=== PATIENT | female | born 1970 | race Caucasian/White ===

== ENCOUNTER → 2017-02-16 | Outpatient (CLI) | payer BC ==
[~2017-02-16] MED LIST: SPRINTEC 35 MCG1 TAB PO; SYNTHROID0.125 MG/T PO
== END ==
LOC: COL.VAS 12:21
DX: M25.562 Pain in left knee (principal)

== ENCOUNTER 2018-07-15 06:11 | Emergency (ER) | payer OTHER | END 2018-07-15 08:10 | disposition home or self-care (01) | LOC: COL.ER 06:11 | DX: S06.0X0A Concussion without loss of consciousness, initial encounter (principal); S00.83XA Contusion of other part of head, initial encounter; F32.9 Major depressive disorder, single episode, unspecified; F41.9 Anxiety disorder, unspecified; V43.52XA Car driver injured in collision with other type car in traffic accident, initial encounter ==

== ENCOUNTER 2018-07-23 13:56 | Outpatient (RCR) | payer OTHER ==
[~2018-07-23 13:56] MED LIST changes: +EFFEXOR-XR150 MG PO; +PROTONIX 40MG T40 MG PO; +SYNTHROID0.1 MG/TAB PO
== END 2018-10-09 15:21 | disposition home or self-care (01) ==
LOC: WSOH 13:56
DX: R51 Headache (principal); V49.88XA Car occupant (driver) (passenger) injured in other specified transport accidents, initial encounter; Y92.414 Local residential or business street as the place of occurrence of the external cause; Y99.0 Civilian activity done for income or pay; K21.9 Gastro-esophageal reflux disease without esophagitis; E03.9 Hypothyroidism, unspecified; Z87.891 Personal history of nicotine dependence

== ENCOUNTER 2018-10-13 05:14 | Emergency (ER) | payer BC ==
[~2018-10-13] VITALS: Ht 160 cm; Wt 51.4 kg
[2018-10-13 05:33] VITALS: TEMP 97.9
[2018-10-13 07:09] LABS: BASO # 0.1 (0.0-0.2); EOS # 0.1 (0.0-0.7); EOS % 1.6 % (0-4.0); GRAN # 4.4 (1.4-6.5); GRAN % 71.5 % (42.2-75.2); HEMATOCRIT 38.8 % (37.0-47.0); HEMOGLOBIN 12.8 g/dl (12.5-16.0); LYMPH # 1.2 (1.2-3.4); MEAN CELL VOLUME 85 fl (80.0-100.0); MEAN CORPUSCULAR HEMOGLOBIN 28 pg (27.0-31.0); MEAN CORPUSCULAR HGB CONC 33 g/dl (33.0-37.0); MEAN PLATELET VOLUME 9.8 fl (7.4-10.4); MONO # 0.3 (0.1-0.6); MONO % 5.6 % (1.7-9.3); PLATELET COUNT 259 K/mm3 (130-400); RED BLOOD COUNT 4.57 M/mm3 (4.10-5.30)
[2018-10-13 07:23] LABS: ALBUMIN 3.4 gm/dL (3.5-5.0); BILIRUBIN,TOTAL 0.1 mg/dL (0.0-1.0); C-REACTIVE PROTEIN 0.5 mg/dL (0.0-0.9); CALCIUM 8.5 mg/dL (8.4-10.2); CREATININE, serum 0.58 (0.52-1.25); POTASSIUM 3.5 mmol/L (3.4-5.0); TOTAL PROTEIN 6.3 gm/dL (6.4-8.2)
[2018-10-13 09:00] VITALS: BP 117/81; PULSE 92
[2018-10-13] MEDS ORDERED: COZAAR 25MG25 MG/TAB PO (09:05)
== END 2018-10-13 09:17 | disposition home or self-care (01) ==
LOC: COL.ER 05:14
PROVIDERS: Family Medicine
DX: I10 Essential (primary) hypertension (principal); R51 Headache; K21.9 Gastro-esophageal reflux disease without esophagitis; E03.9 Hypothyroidism, unspecified; F17.210 Nicotine dependence, cigarettes, uncomplicated; Z98.890 Other specified postprocedural states

== ENCOUNTER 2018-12-10 15:22 | Outpatient (RCR) | payer OTHER ==
[~2018-12-10 15:22] MED LIST changes: +COZAAR 25MG25 MG/TAB PO
== END 2019-01-04 13:18 | disposition home or self-care (01) ==
LOC: WSOH 15:22
DX: S61.235A Puncture wound without foreign body of left ring finger without damage to nail, initial encounter (principal); W46.1XXA Contact with contaminated hypodermic needle, initial encounter; Z77.21 Contact with and (suspected) exposure to potentially hazardous body fluids; Y92.239 Unspecified place in hospital as the place of occurrence of the external cause; Y93.F9 Activity, other caregiving; Y99.0 Civilian activity done for income or pay; E03.9 Hypothyroidism, unspecified; F32.9 Major depressive disorder, single episode, unspecified; K21.9 Gastro-esophageal reflux disease without esophagitis; Z87.891 Personal history of nicotine dependence; Z79.899 Other long term (current) drug therapy

== ENCOUNTER → 2020-03-23 | Outpatient (CLI) | payer BC | LOC: MC.RAD 11:42 | DX: Z12.31 Encounter for screening mammogram for malignant neoplasm of breast (principal) ==

== ENCOUNTER → 2023-11-28 | Outpatient (CLI) | payer OTHER ==
[2005-06-07 08:00] VITALS: PULSE 75; TEMP 98
[~2023-11-28] MED LIST changes: +AMOXICILLIN 8751 TAB PO; +PERCOCET 325 MG1 TA2 PO
== END ==
LOC: COL.VAS 11:32
DX: M34.9 Systemic sclerosis, unspecified (principal); I08.0 Rheumatic disorders of both mitral and aortic valves